=== PATIENT | female | born 1970 | race Caucasian/White ===

== ENCOUNTER 2016-05-17 13:42 | Emergency (ER) | payer MEDICAID ==
[2016-05-17 16:14] LABS: BASOPHILS 0.9 % (0.0-2.0); EOSINOPHILS 2.4 % (0-7); HEMATOCRIT 33.7 % (36.0-48.0); HEMOGLOBIN 11.3 g/dL (12-16); IMMATURE GRANULOCYTES 0.3 % (0-5); MCH 29.9 pg (26.0-34.0); MCHC 33.5 g/dL (31.0-37.0); MCV 89.2 fL (80.0-100.0); MEAN PLATELET VOLUME 10.1 fL (7.4-10.4); MONOCYTES 5.5 % (2-11); NEUTROPHILS 47.9 % (40-80); PLATELET COUNT 167 10x3/uL (130-400); RBC 3.78 10x6/uL (4.00-5.40); RDW 13.3 % (11.5-14.5); WBC 3.3 10x3/uL (4.8-10.8)
[2016-05-17 17:29] LABS: ANION GAP 13.6 mmol/L (8-16); CARBON DIOXIDE 25.7 mmol/L (21.0-32.0); POTASSIUM - SERUM 3.3 mmol/L (3.5-5.1); T4 THYROXIN - FREE 0.15 ng/dL (0.76-1.46); THYROID STIMULATING HORMONE 299.13 uIU/mL (0.36-3.74)
== END 2016-05-17 18:00 | disposition home or self-care (01) ==
LOC: D.ER 13:42
PROVIDERS: Nurse Practitioner Acute Care
DX: E03.9 Hypothyroidism, unspecified (principal); F32.9 Major depressive disorder, single episode, unspecified; E07.9 Disorder of thyroid, unspecified; F17.200 Nicotine dependence, unspecified, uncomplicated

== ENCOUNTER 2016-11-29 20:32 | Emergency (ER) | payer MEDICAID ==
[2016-11-29 21:42] LABS: BASOPHILS 0.3 % (0-2); HEMATOCRIT 35.2 % (36.0-48.0); HEMOGLOBIN 12.1 g/dL (12-16); IMMATURE GRANULOCYTES 0.2 % (0-5); LYMPHOCYTES 14.6 % (15-50); MCH 31.3 pg (26.0-34.0); MCHC 34.4 g/dL (31.0-37.0); MCV 91.2 fL (80.0-100.0); MEAN PLATELET VOLUME 9.8 fL (7.4-10.4); MONOCYTES 6.3 % (2-11); NEUTROPHILS 76.6 % (40-80); PLATELET COUNT 216 10x3/uL (130-400); RBC 3.86 10x6/uL (4.00-5.40); RDW 12.6 % (11.5-14.5)
[2016-11-29 21:46] LABS: ANION GAP 12.7 mmol/L (8-16); CALCIUM 8.3 mg/dL (8.5-10.1); CARBON DIOXIDE 27.6 mmol/L (21.0-32.0); CREATININE - SERUM 0.9 mg/dL (0.6-1.3); POTASSIUM - SERUM 3.3 mmol/L (3.5-5.1)
[2016-11-29 22:24] LABS: APPEARANCE HAZY (CLEAR); BACTERIA MANY /hpf (NONE SEEN); BILIRUBIN NEGATIVE (NEGATIVE); COLOR YELLOW (YELLOW); GLUCOSE NEGATIVE (NEGATIVE); KETONE NEGATIVE (NEGATIVE); LEUKOCYTE ESTERASE TRACE (NEGATIVE); NITRITE POSITIVE (NEGATIVE); PROTEIN TRACE mg/dL (NEGATIVE); RED CELLS - URINE 0-5 /hpf (0-5); UROBILINOGEN NORMAL (NORMAL); WHITE CELLS - URINE >50 /hpf (0-5)
[2016-11-29 22:25] LABS: MUCUS <1+ /lpf (NONE SEEN)
== END 2016-11-30 01:40 | disposition home or self-care (01) ==
LOC: D.ER 20:32
PROVIDERS: Nurse Practitioner Acute Care
DX: N39.0 Urinary tract infection, site not specified (principal); N83.209 Unspecified ovarian cyst, unspecified side; F17.200 Nicotine dependence, unspecified, uncomplicated; R11.0 Nausea; F32.9 Major depressive disorder, single episode, unspecified; E03.9 Hypothyroidism, unspecified; E07.9 Disorder of thyroid, unspecified

== ENCOUNTER → 2016-12-31 14:09 | Outpatient (CLI) | payer MEDICAID | END | disposition home or self-care (01) | LOC: D.CT 14:09 | DX: R10.9 Unspecified abdominal pain (principal) ==

== ENCOUNTER 2017-03-17 05:28 | Day surgery (SDC) | payer MEDICAID ==
[2017-03-15 11:28] LABS: BASOPHILS 0.7 % (0-2); EOSINOPHILS 4.7 % (0-7); HEMATOCRIT 38.6 % (36.0-48.0); HEMOGLOBIN 13.1 g/dL (12-16); LYMPHOCYTES 32.4 % (15-50); MCH 31.1 pg (26.0-34.0); MCHC 33.9 g/dL (31.0-37.0); MCV 91.7 fL (80.0-100.0); MEAN PLATELET VOLUME 9.6 fL (7.4-10.4); MONOCYTES 5.6 % (2-11); NEUTROPHILS 56.6 % (40-80); PLATELET COUNT 199 10x3/uL (130-400); RBC 4.21 10x6/uL (4.00-5.40); RDW 13.4 % (11.5-14.5); WBC 4.3 10x3/uL (4.8-10.8)
[~2017-03-17] VITALS: Ht 157.5 cm; Wt 52.2 kg
[~2017-03-17 05:28] MED LIST: ABILIFY15 MG PO; KLONOPIN0.5 MG PO; LIPITOR40 MG PO; MULTIPLE VITAMI1 TA1 PO; PROAIR HFA8.5 GM INH; SYNTHROID75 MCG PO
[2017-03-17 06:55] VITALS: BP 94/72; Ht 157.5 cm; Wt 52.2 kg
[2017-03-17 07:13] LABS: HCG URINE NEGATIVE (NEGATIVE)
--- NOTE | 2017-03-17 10:02 | NUR ---
CONSULTED ANETHESIA REGARDING HEART RATE BELOW [address] TRACY AT BEDSIDE. BP STABLE. NO FURTHER ORDERS.
--- NOTE | 2017-03-17 10:13 | NUR ---
1002 BACK FROM NOVASURE ABLATION. ALERT AND TALKING. RESP NONLABORED, HOB ELEVATED. DENIES PAIN OR NAUSEA. ON MONITOR ICE CHIPS SERVED. NO VAGINAL BLEEDING. C/L IN REACH.
--- NOTE | 2017-03-17 10:21 | NUR ---
1010 REPORT TO MAHSA QUEVEDO R.N.
--- NOTE | 2017-03-17 16:29 | NUR ---
1240--PT VOIDS, IV DC'D. PT OFF UNIT VIA DEBRA. [place] 1250--DISCHARGE INSTRUCTIONS GIVEN, PT VERBALIZES UNDERSTANDING. PT OFF UNIT VIA WC. [place]
--- NOTE | 2017-03-31 16:41 | OP ---
PATIENT NAME: ARPIT GALICIA MEDICAL RECORD: [id number] :68 LOCATION:D.OPS ADMISSION DATE: SURGEON: EMETERIO TAY MD DATE OF OPERATION: 03/17/2017 PREOPERATIVE DIAGNOSES: 1. Menorrhagia. 2. Uterine fibroids. 3. Normal endometrial office biopsy. POSTOPERATIVE DIAGNOSES: 1. Menorrhagia. 2. Uterine fibroids. 3. Normal endometrial office biopsy. PROCEDURE: Diagnostic hysteroscopy and NovaSure endometrial ablation. SURGEON: Emeterio Tay MD ANESTHESIA: General. INTRAVENOUS FLUIDS: Per anesthesia records. HYSTEROSCOPIC FLUID LOSS: 100mL of 0.9 normal saline. IV FLUIDS: Per anesthesia record. FINDINGS: 1. Enlarged myomatous endometrial cavity. 2. Both ostia identified. 3. Sounded to 10 cm. SPECIMENS: None. COMPLICATIONS: None apparent. PROCEDURE IN DETAIL: The patient was taken to the operating room where general anesthesia was achieved without difficulty. The patient was prepped and draped in normal sterile fashion in the dorsal lithotomy position in the [facility]. Bladder was drained of approximately 100 cc of clear yellow urine. At this point, a Graves speculum was placed in the vagina and the cervix was identified and grasped on its anterior lip with a single tooth tenaculum. Uterus sounded to exactly 10 cm. The NovaSure measurement device calculated the cervix to be approximately 3.5 cm. A hysteroscopy was then performed. Following hysteroscopy, the cervix was dilated to approximately 8 mm. At this point, the NovaSure device was calibrated to a depth of 6 and inserted and a width of 3 was noted. The calculation was placed in the NovaSure device. The vacuum sleeve was placed against the cervix, both prechecks passed times 2. The ablation cycle began and lasted for 80 seconds. Following the end of the cycle, the vacuum cuff was slip backwards and the NovaSure device was removed using the bow and arrow technique. No bleeding was noted from the cervical os following the procedure. The tenaculum was removed. Tenaculum sites were found to be hemostatic. The patient tolerated the procedure well, was transferred to postanesthesia recovery stable without incident. OPERATIVE REPORT [id number] ARPIT GALICIA TRANSINT:[id number] Voice Confirmation ID: [id number] DOCUMENT ID: [id number] EMETERIO TAY MD at 1641 CC: [id number] DICTATION DATE: 03/17/1735 COMMANDING OFFICER [facility]: 03/17/1759 [facility] 03/17/17 [id number] [place] [address]
== END 2017-03-17 12:50 | disposition home or self-care (01) ==
LOC: D.OPS 05:28 → D.PAN 08:30 → D.OPS 08:30
PROVIDERS: Obstetrics & Gynecology
DX: N92.0 Excessive and frequent menstruation with regular cycle (principal); D25.9 Leiomyoma of uterus, unspecified; Z01.812 Encounter for preprocedural laboratory examination

== ENCOUNTER 2017-12-06 18:13 | Emergency (ER) | payer MEDICAID ==
[~2017-12-06] VITALS: Ht 157.5 cm; Wt 50.0 kg
[2017-12-06 18:39] VITALS: BP 107/49; Ht 157.5 cm; Wt 50.0 kg
[2017-12-06] MEDS ORDERED: NAPROSYN500 MG PO (18:49)
[2017-12-06] MEDS ORDERED: AMOXICILLIN500 M1 PO (18:49)
== END 2017-12-06 18:54 | disposition home or self-care (01) ==
LOC: D.ER 18:13
DX: J02.0 Streptococcal pharyngitis (principal); E07.9 Disorder of thyroid, unspecified; R05 Cough; R09.89 Other specified symptoms and signs involving the circulatory and respiratory systems; J44.9 Chronic obstructive pulmonary disease, unspecified

== ENCOUNTER 2018-01-07 11:58 | Emergency (ER) | payer MEDICAID ==
[~2018-01-07] VITALS: Ht 157.5 cm; Wt 54.2 kg
[~2018-01-07 11:58] MED LIST changes: +AMOXICILLIN500 M1 PO; +NAPROSYN500 MG PO
[2018-01-07 12:17] VITALS: Ht 157.5 cm; Wt 54.2 kg
[2018-01-07] MEDS ORDERED: CYCLOBENZAPRINE10 MG PO (13:48)
[2018-01-07] MEDS ORDERED: HYDROCODON-ACE1 EAC7 PO (13:48)
[2018-01-07 13:55] VITALS: BP 114/73
== END 2018-01-07 13:55 | disposition home or self-care (01) ==
LOC: D.ER 11:58
DX: M54.5 Low back pain (principal); J44.9 Chronic obstructive pulmonary disease, unspecified; F17.200 Nicotine dependence, unspecified, uncomplicated

== ENCOUNTER 2018-12-05 09:57 | Emergency (ER) | payer MEDICAID ==
[~2018-12-05] VITALS: Ht 157.5 cm; Wt 56.7 kg
[~2018-12-05 09:57] MED LIST changes: +CYCLOBENZAPRINE10 MG PO; +HYDROCODON-ACE1 EAC7 PO
[2018-12-05 10:01] VITALS: Ht 157.5 cm; Wt 56.7 kg
[2018-12-05] MEDS ORDERED: VISTARIL25 MG PO (10:07)
[2018-12-05] MEDS ORDERED: LIPITOR20 MG PO (10:07)
[2018-12-05] MEDS ORDERED: PAXIL20 MG PO (10:07)
[2018-12-05] MEDS ORDERED: KLONOPIN1 MG PO (10:08)
[2018-12-05] MEDS ORDERED: TRAZODONE HCL150 MG PO (10:08)
[2018-12-05] MEDS ORDERED: LATUDA40 MG PO (10:08)
[2018-12-05] MEDS ORDERED: LIPITOR40 MG PO (10:09)
[2018-12-05] MEDS ORDERED: SYNTHROID150 MCG PO (10:10)
[2018-12-05 11:01] LABS: APPEARANCE CLEAR (CLEAR); BACTERIA MANY /hpf (NONE SEEN); BILIRUBIN NEGATIVE (NEGATIVE); COLOR YELLOW (YELLOW); EPITHELIAL CELLS 0-5 /hpf (0-5); GLUCOSE NEGATIVE (NEGATIVE); KETONE NEGATIVE (NEGATIVE); MUCUS <1+ /lpf (NONE SEEN); NITRITE NEGATIVE (NEGATIVE); PROTEIN NEGATIVE (NEGATIVE); RED CELLS - URINE RARE /hpf (0-5); SPECIFIC GRAVITY 1.005 (1.005-1.020); UROBILINOGEN NORMAL (NORMAL); WHITE CELLS - URINE 0-5 /hpf (0-5)
[2018-12-05 11:13] LABS: UDS - AMPHET NEGATIVE QUAL (NEGATIVE); UDS - BARB NEGATIVE QUAL (NEGATIVE); UDS - BENZO NEGATIVE QUAL (NEGATIVE); UDS - COCAINE NEGATIVE QUAL (NEGATIVE); UDS - OPIATE NEGATIVE QUAL (NEGATIVE); UDS - PCP NEGATIVE QUAL (NEGATIVE); UDS - THC POSITIVE QUAL (NEGATIVE)
[2018-12-05] MEDS ORDERED: FLAGYL500 MG PO (11:16)
[2018-12-05 11:19] LABS: T4 THYROXIN - FREE 0.85 ng/dL (0.76-1.46); T4 THYROXINE 7.4 ug/dL (4.7-13.3); THYROID STIMULATING HORMONE 9.51 uIU/mL (0.36-3.74)
[2018-12-05 13:10] VITALS: BP 106/80
[2018-12-06 15:21] LABS: HIV AB INTERPRETATION HIV-1 Positive (())
[2018-12-07 19:08] LABS: CHLAMYDIA TRACHOMATIS, NAA Negative (Negative)
== END 2018-12-05 11:35 | disposition home or self-care (01) ==
LOC: D.ER 09:57
PROVIDERS: Emergency Medicine
DX: Z20.2 Contact with and (suspected) exposure to infections with a predominantly sexual mode of transmission (principal); E03.9 Hypothyroidism, unspecified; E04.2 Nontoxic multinodular goiter; D36.7 Benign neoplasm of other specified sites; A59.01 Trichomonal vulvovaginitis